=== PATIENT | male | born 1945 | race Caucasian/White ===

== ENCOUNTER 2019-03-24 02:57 | Inpatient (IN) ==
[2019-03-24] MEDS ORDERED: *HR* Adenosine 6 MG/2 ML VIAL IVP ONE ×3 (03:04→03:16)
[2019-03-24] MEDS ORDERED: 0.9 % Sodium Chloride 1,000 ML ONE (03:04)
[2019-03-24] MEDS ORDERED: Ipratropium/Albuterol Neb 3 ML ONE (03:05)
[2019-03-24] MEDS ORDERED: methylPREDNISolone 125 MG/2 ML VIAL IVP ONE (03:13)
[2019-03-24] MEDS ORDERED: Ipratropium/Albuterol Neb 3 ML IH ONE (03:14)
[2019-03-24 03:24] LABS: Basophils % 0.4 %; Immature Granulocytes % 0.4 % (0-4); Red Cell Distribution Width 13.1 % (11.5-14.5)
[2019-03-24 03:25] LABS: Basophils # 0.1 K/mcL (0.0-0.2); Hemoglobin 18.9 g/dL (12.9-16.9); Lymphocytes # 0.7 K/mcL (0.6-4.6); Lymphocytes % 2.4 %; Mean Corpuscular HGB Conc 32.7 g/dL (31.6-35.5); Mean Corpuscular Hemoglobin 31.6 pg (28.0-33.3); Mean Corpuscular Volume 96.5 fL (83.0-100.0); Mean Platelet Volume 11.2 fL (9.4-12.4); Monocytes # 0.7 K/mcL (0.0-1.3); Monocytes % 2.7 %; Neutrophils # 25.8 K/mcL (1.6-8.9); Nucleated Red Blood Cells 0.1 /100 WBC (0); Platelet Count 302 K/mcL (140-400); Red Blood Count 5.99 M/mcL (4.19-5.50); Segmented Neutrophils % 94.1 %; White Blood Count 27.4 K/mcL (4.3-11.1)
[2019-03-24 03:31] LABS: Hematocrit 57.8 % (37.5-50.1)
[2019-03-24] MEDS ORDERED: levoFLOXacin 750 MG/150 ML 750 MG/150 ML BAG IVPB ONE (03:41)
[2019-03-24] MEDS ORDERED: Azithromycin 500 MG in 0.9 % Sodium Chloride 250 ML IVPB ONE (03:41)
[2019-03-24 03:48] LABS: ABG Base Excess -3 mEq/L (-2 to 3); ABG HCO3 23 mEq/L (21-27); ABG Oxygen Saturation 91 % (95-98); ABG PCO2 46 mmHg (35-45); ABG PH 7.32 pH Units (7.32-7.45); ABG PO2 67 mmHg (85-104); ABG TCO2 25 mEq/L (20-26); Blood Gas Modality BiLevel
[2019-03-24 03:54] LABS: Calcium 10.6 mg/dL (8.6-10.3); Potassium 3.8 mEq/L (3.5-5.1); Troponin I 0.18 ng/mL (< 0.04)
[2019-03-24 03:58] LABS: Bilirubin,Urine Moderate (Negative); Blood,Urine Moderate (Negative); Clarity,Urine Turbid (Clear); Color,Urine Orange (Yellow); Glucose,Urine (UA) Normal (Normal); Ketones,Urine Trace mg/dL (Negative); Leukocyte Esterase,Urine Trace (Negative); Nitrite,Urine Negative (Negative); Protein,Urine 100 mg/dL (Neg-Trace); Specific Gravity,Urine 1.026 (1.010-1.025); Urobilinogen,Urine Normal (Normal)
[2019-03-24] MEDS: 0.9 % Sodium Chloride 1,000 ML IVC SCH ×2 (03:58→04:43)
[2019-03-24 04:03] LABS: Bacteria,Urine Present per hpf (None-Few); RBC,Urine Present per hpf (0-3)
[2019-03-24 04:05] LABS: Calcium Carbonate Crystals,Ur Present
[2019-03-24 04:06] LABS: Amorphous Sediment,Urine Many per hpf (Few); WBC,Urine Present per hpf (0-3)
[2019-03-24] MEDS ORDERED: *HR* Digoxin 0.5 MG/2 ML AMPUL IVP ONE (04:18)
[2019-03-24 04:21] LABS: INR 1.2; Prothrombin Time 13.4 Seconds (9.4-12.1)
[2019-03-24 04:24] LABS: Activated Partial Thrombo Time 36.4 Seconds (26.0-36.0)
[2019-03-24] MEDS ORDERED: Cefepime HCl 1,000 MG in 0.9 % Sodium Chloride Mini Bag 100 ML IVPB SCH (04:39)
[2019-03-24] MEDS ORDERED: Acetaminophen 650 MG RECTAL SUPP RC ONE (04:39)
[2019-03-24] MEDS ORDERED: Morphine Sulfate 2 MG/ML SYRINGE IVP ONE (04:39)
[2019-03-24] MEDS ORDERED: *HR* Heparin 5,000 UNIT/ML VIAL IVP PRN ×4 (04:40→05:18)
[2019-03-24] MEDS ORDERED: *HR* Heparin 5,000 UNIT/ML VIAL IVP ONE ×2 (04:40→05:18)
[2019-03-24] MEDS ORDERED: Heparin 25,000 UNIT/250 ML D5W 25,000 UNIT/250 ML IV.SOLN IVC SCH ×2 (04:45→05:30)
[2019-03-24 04:51] LABS: Thyroid Stimulating Hormone 0.87 mcIU/mL (0.340-5.600)
[2019-03-24] MEDS ORDERED: Ondansetron 4 MG/2 ML VIAL IVP PRN (05:04)
[2019-03-24] MEDS ORDERED: Acetaminophen 325 MG TABLET PO PRN (05:04)
[2019-03-24] MEDS ORDERED: Dextrose Gel 15 GM/37.5 ML TUBE PO PRN ×2 (05:04)
[2019-03-24] MEDS ORDERED: D5% in Water 1,000 ML IVC PRN (05:04)
[2019-03-24] MEDS ORDERED: Albuterol 2.5 MG/3 ML NEBULIZER IH PRN (05:04)
[2019-03-24] MEDS ORDERED: Nitroglycerin 0.4 MG TAB.SUBL SL PRN (05:04)
[2019-03-24] MEDS ORDERED: *HR* Dextrose 50 % in Water (Syg) 50 ML SYRINGE IVP PRN (05:04)
[2019-03-24] MEDS ORDERED: Morphine Sulfate 2 MG/ML SYRINGE IVP PRN (05:04)
[2019-03-24] MEDS ORDERED: Naloxone 0.4 MG/ML INJ IVP PRN (05:04)
[2019-03-24] MEDS ORDERED: *HR* Promethazine 25 MG/ML VIAL IVP PRN (05:04)
[2019-03-24] MEDS: Ipratropium/Albuterol Neb 3 ML IH SCH ×4 (05:30→23:01)
[2019-03-24 05:40] LABS: Hematocrit 51.9 % (37.5-50.1); INR 1.2; Mean Corpuscular Hemoglobin 31.5 pg (28.0-33.3); Mean Corpuscular Volume 98.5 fL (83.0-100.0); Mean Platelet Volume 11.2 fL (9.4-12.4); Platelet Count 227 K/mcL (140-400); Prothrombin Time 13.3 Seconds (9.4-12.1); Red Blood Count 5.27 M/mcL (4.19-5.50); Red Cell Distribution Width 12.9 % (11.5-14.5); White Blood Count 20.4 K/mcL (4.3-11.1)
[2019-03-24 05:51] LABS: Hemoglobin 16.6 g/dL (12.9-16.9); Magnesium 2.4 mg/dL (1.6-2.6); Phosphorous 3.9 mg/dL (2.7-4.5)
[2019-03-24] MEDS: MethylPREDNISolone 40 MG/ML VIAL IVP SCH ×3 (06:04→18:49)
[2019-03-24] MEDS: MetroNIDAZOLE 500 MG/100 ML 500 MG/100 ML BAG IVPB SCH ×3 (06:13→20:39)
[2019-03-24] MEDS: Insulin LISPRO 300 UNITS/3 ML VIAL SQ SCH ×3 (06:34→20:36)
[2019-03-24 07:08] LABS: Sodium, Urine 11.2 mEq/L
[2019-03-24 07:59] LABS: Estimated Average Glucose 117 mg/dl
[2019-03-24] MEDS: Nicotine 14 MG PATCH.TD24 TD SCH (12:36)
[2019-03-24] MEDS ORDERED: *HR* LORazepam 2 MG/ML VIAL IVP PRN (14:42)
[2019-03-24] MEDS: dilTIAZem HCl 60 MG TABLET PO SCH ×3 (14:47→20:36)
[2019-03-24] MEDS ORDERED: 0.9 % Sodium Chloride 1,000 ML IVC SCH (15:30)
[2019-03-24] MEDS: Nystatin SUSP 5 ML UD.LIQ PO SCH ×2 (18:50→20:40)
[2019-03-24 19:21] LABS: Acinetobacter baumannii by PCR Not Detected (Not Detect); Candida albicans by PCR Not Detected (Not Detect); Candida glabrata by PCR Not Detected (Not Detect); Candida krusei by PCR Not Detected (Not Detect); Candida parapsilosis by PCR Not Detected (Not Detect); Candida tropicalis by PCR Not Detected (Not Detect); Enterobacter cloacae Cmplx PCR Not Detected (Not Detect); Enterobacteriaceae by PCR Not Detected (Not Detect); Enterococcus by PCR Not Detected (Not Detect); Escherichia coli by PCR Not Detected (Not Detect); Klebsiella oxytoca by PCR Not Detected (Not Detect); Klebsiella pneumoniae by PCR Not Detected (Not Detect); Proteus by PCR Not Detected (Not Detect); Pseudomonas aeruginosa by PCR Not Detected (Not Detect); Serratia marcescens by PCR Not Detected (Not Detect); Staphylococcus aureus by PCR Not Detected (Not Detect); Staphylococcus by PCR Not Detected (Not Detect); Streptococcus agalactiae(B)PCR Not Detected (Not Detect); Streptococcus pneumoniae PCR DETECTED (Not Detect); Streptococcus pyogenes (A) PCR Not Detected (Not Detect); blaKPC Carbapenem-Resist Gene Not Detected (Not Detect); mecA Methicillin-Resist Gene Not Detected (Not Detect); vanA/B Vancomycin-Resist Genes Not Detected (Not Detect)
[2019-03-24] MEDS: Cefepime HCl 1,000 MG in 0.9 % Sodium Chloride Mini Bag 100 ML IVPB SCH (20:39)
[2019-03-25] MEDS: Insulin LISPRO 300 UNITS/3 ML VIAL SQ SCH ×5 (00:58→23:53)
[2019-03-25] MEDS: MethylPREDNISolone 40 MG/ML VIAL IVP SCH ×4 (01:07→23:57)
[2019-03-25] MEDS: Ipratropium/Albuterol Neb 3 ML IH SCH ×4 (03:41→22:32)
[2019-03-25 05:32] LABS: Basophils % 0.1 %; Hematocrit 48.8 % (37.5-50.1); Hemoglobin 15.9 g/dL (12.9-16.9); Immature Granulocytes % 0.9 % (0-4); Lymphocytes # 0.4 K/mcL (0.6-4.6); Lymphocytes % 1.8 %; Mean Corpuscular HGB Conc 32.6 g/dL (31.6-35.5); Mean Corpuscular Hemoglobin 31.1 pg (28.0-33.3); Mean Corpuscular Volume 95.5 fL (83.0-100.0); Monocytes # 0.4 K/mcL (0.0-1.3); Monocytes % 1.8 %; Neutrophils # 19.2 K/mcL (1.6-8.9); Platelet Count 206 K/mcL (140-400); Red Blood Count 5.11 M/mcL (4.19-5.50); Red Cell Distribution Width 13.2 % (11.5-14.5); Segmented Neutrophils % 95.4 %; White Blood Count 20.1 K/mcL (4.3-11.1)
[2019-03-25 05:44] LABS: Magnesium 2.7 mg/dL (1.6-2.6); Phosphorous 2.2 mg/dL (2.7-4.5)
[2019-03-25 05:45] LABS: Calcium 10.4 mg/dL (8.6-10.3); Potassium 3.5 mEq/L (3.5-5.1)
[2019-03-25] MEDS: MetroNIDAZOLE 500 MG/100 ML 500 MG/100 ML BAG IVPB SCH ×3 (05:45→20:21)
[2019-03-25] MEDS ORDERED: D5% in Water 1,000 ML IVC SCH ×2 (07:00→09:59)
[2019-03-25] MEDS ORDERED: Azithromycin 250 MG TABLET PO SCH (08:00)
[2019-03-25] MEDS: Nystatin SUSP 5 ML UD.LIQ PO SCH ×4 (08:01→20:30)
[2019-03-25] MEDS ORDERED: Fluconazole 200 MG/100 ML 200 MG/100 ML BAG IVPB SCH (09:00)
[2019-03-25] MEDS: dilTIAZem HCl 60 MG TABLET PO SCH ×4 (09:44→20:22)
[2019-03-25] MEDS: Nicotine 14 MG PATCH.TD24 TD SCH (09:44)
[2019-03-25] MEDS: Cefepime HCl 1,000 MG in 0.9 % Sodium Chloride Mini Bag 100 ML IVPB SCH ×2 (09:50→20:20)
[2019-03-25] MEDS ORDERED: Dextrose Gel 15 GM/37.5 ML TUBE PO PRN ×2 (09:59)
[2019-03-25] MEDS ORDERED: Nitroglycerin 0.4 MG TAB.SUBL SL PRN (09:59)
[2019-03-25] MEDS ORDERED: Ondansetron 4 MG/2 ML VIAL IVP PRN (09:59)
[2019-03-25] MEDS ORDERED: Naloxone 0.4 MG/ML INJ IVP PRN (09:59)
[2019-03-25] MEDS ORDERED: *HR* Dextrose 50 % in Water (Syg) 50 ML SYRINGE IVP PRN (09:59)
[2019-03-25] MEDS ORDERED: *HR* Promethazine 25 MG/ML VIAL IVP PRN (09:59)
[2019-03-25] MEDS ORDERED: D5% in Water 1,000 ML IVC PRN (09:59)
[2019-03-25] MEDS ORDERED: Albuterol 2.5 MG/3 ML NEBULIZER IH PRN (09:59)
[2019-03-25] MEDS ORDERED: Acetaminophen 325 MG TABLET PO PRN (09:59)
[2019-03-25] MEDS: Fluconazole 200 MG/100 ML 200 MG/100 ML BAG IVPB SCH (10:36)
[2019-03-25] MEDS ORDERED: Potassium Chloride 40 MEQ, Lidocaine 1% 2 ML in 0.9 % Sodium Chloride 500 ML IVPB ONE (10:52)
[2019-03-25] MEDS ORDERED: Potassium Phosphate 44 MEQ in 0.9 % Sodium Chloride 250 ML IVPB ONE (10:52)
[2019-03-25] MEDS ORDERED: MethylPREDNISolone 40 MG/ML VIAL IVP SCH (12:00)
[2019-03-25 15:37] LABS: BUN/Creatinine Ratio 50 (6-26); Blood Urea Nitrogen 63 mg/dL (8-23); Calcium 9.4 mg/dL (8.6-10.3); Carbon Dioxide 23 mEq/L (23-29); Chloride 123 mEq/L (98-107); Glucose 179 mg/dL (70-105); Osmolality,Calculated 334 (280-300); Potassium 4.8 mEq/L (3.5-5.1); Sodium 151 mEq/L (136-145); eGFR For African Americans > 60 (> 60); eGFR For Non-African Americans 55 (> 60)
[2019-03-25] MEDS: *HR* Heparin 5,000 UNIT/ML VIAL SQ SCH (18:23)
[2019-03-26] MEDS: *HR* LORazepam 2 MG/ML VIAL IVP PRN ×5 (03:44→16:38)
[2019-03-26] MEDS: Ipratropium/Albuterol Neb 3 ML IH SCH ×4 (04:27→22:23)
[2019-03-26] MEDS: MetroNIDAZOLE 500 MG/100 ML 500 MG/100 ML BAG IVPB SCH ×3 (04:50→20:42)
[2019-03-26] MEDS: *HR* Heparin 5,000 UNIT/ML VIAL SQ SCH ×3 (05:00→17:12)
[2019-03-26] MEDS: Insulin LISPRO 300 UNITS/3 ML VIAL SQ SCH ×3 (05:37→18:17)
[2019-03-26] MEDS: dilTIAZem HCl 60 MG TABLET PO SCH ×4 (07:58→20:42)
[2019-03-26] MEDS: Nystatin SUSP 5 ML UD.LIQ PO SCH ×4 (07:58→20:43)
[2019-03-26] MEDS: MethylPREDNISolone 40 MG/ML VIAL IVP SCH ×2 (07:58→15:24)
[2019-03-26] MEDS: Cefepime HCl 1,000 MG in 0.9 % Sodium Chloride Mini Bag 100 ML IVPB SCH ×2 (07:58→15:24)
[2019-03-26] MEDS: Nicotine 14 MG PATCH.TD24 TD SCH (08:08)
[2019-03-26] MEDS: Fluconazole 200 MG/100 ML 200 MG/100 ML BAG IVPB SCH (08:10)
[2019-03-26] MEDS ORDERED: Isovue-370 500 ML BOTTLE IVP ONE (08:11)
[2019-03-26] MEDS ORDERED: Cefepime HCl 2,000 MG in 0.9 % Sodium Chloride Mini Bag 100 ML IVPB SCH (08:12)
[2019-03-26] MEDS ORDERED: D5% in Water 1,000 ML IVC SCH (08:15)
[2019-03-26 09:02] LABS: Hematocrit 45.4 % (37.5-50.1); Mean Corpuscular HGB Conc 32.2 g/dL (31.6-35.5); Mean Corpuscular Hemoglobin 30.9 pg (28.0-33.3); Mean Corpuscular Volume 96.2 fL (83.0-100.0); Mean Platelet Volume 11.7 fL (9.4-12.4); Platelet Count 188 K/mcL (140-400); Red Blood Count 4.72 M/mcL (4.19-5.50); Red Cell Distribution Width 13.8 % (11.5-14.5); White Blood Count 11.6 K/mcL (4.3-11.1)
[2019-03-26 09:04] LABS: Hemoglobin 14.6 g/dL (12.9-16.9)
[2019-03-26 09:23] LABS: BUN/Creatinine Ratio 53 (6-26); Blood Urea Nitrogen 63 mg/dL (8-23); Calcium 9.9 mg/dL (8.6-10.3); Carbon Dioxide 23 mEq/L (23-29); Chloride 120 mEq/L (98-107); Glucose 146 mg/dL (70-105); Magnesium 2.5 mg/dL (1.6-2.6); Osmolality,Calculated 345 (280-300); Phosphorous 3.2 mg/dL (2.7-4.5); Potassium 4.1 mEq/L (3.5-5.1); Sodium 157 mEq/L (136-145); eGFR For African Americans > 60 (> 60); eGFR For Non-African Americans > 60 (> 60)
[2019-03-26] MEDS ORDERED: Haloperidol Oral Conc 10 MG/5 ML UDC PO PRN (14:01)
[2019-03-27] MEDS: Insulin LISPRO 300 UNITS/3 ML VIAL SQ SCH ×4 (01:45→18:40)
[2019-03-27] MEDS: Cefepime HCl 1,000 MG in 0.9 % Sodium Chloride Mini Bag 100 ML IVPB SCH ×4 (01:45→23:54)
[2019-03-27] MEDS: MethylPREDNISolone 40 MG/ML VIAL IVP SCH ×4 (01:46→23:54)
[2019-03-27 02:32] LABS: Basophils # 0.1 K/mcL (0.0-0.2); Basophils % 0.7 %; Hematocrit 43.3 % (37.5-50.1); Hemoglobin 14.1 g/dL (12.9-16.9); Immature Granulocytes % 2.8 % (0-4); Lymphocytes # 0.6 K/mcL (0.6-4.6); Lymphocytes % 5.3 %; Mean Corpuscular HGB Conc 32.6 g/dL (31.6-35.5); Mean Corpuscular Hemoglobin 31.1 pg (28.0-33.3); Mean Corpuscular Volume 95.4 fL (83.0-100.0); Mean Platelet Volume 11.9 fL (9.4-12.4); Monocytes # 0.5 K/mcL (0.0-1.3); Monocytes % 4.9 %; Neutrophils # 9.5 K/mcL (1.6-8.9); Platelet Count 150 K/mcL (140-400); Red Blood Count 4.54 M/mcL (4.19-5.50); Red Cell Distribution Width 14.5 % (11.5-14.5); Segmented Neutrophils % 86.3 %
[2019-03-27 03:17] LABS: BUN/Creatinine Ratio 53 (6-26); Blood Urea Nitrogen 57 mg/dL (8-23); Calcium 9.4 mg/dL (8.6-10.3); Carbon Dioxide 21 mEq/L (23-29); Chloride 126 mEq/L (98-107); Glucose 153 mg/dL (70-105); Magnesium 2.4 mg/dL (1.6-2.6); Osmolality,Calculated 333 (280-300); Phosphorous 2.4 mg/dL (2.7-4.5); Potassium 4.3 mEq/L (3.5-5.1); Sodium 152 mEq/L (136-145); eGFR For African Americans > 60 (> 60); eGFR For Non-African Americans > 60 (> 60)
[2019-03-27] MEDS: Ipratropium/Albuterol Neb 3 ML IH SCH ×4 (04:27→22:35)
[2019-03-27] MEDS: MetroNIDAZOLE 500 MG/100 ML 500 MG/100 ML BAG IVPB SCH ×3 (05:41→19:47)
[2019-03-27] MEDS: *HR* Heparin 5,000 UNIT/ML VIAL SQ SCH ×2 (05:42→17:16)
[2019-03-27] MEDS ORDERED: D5% in Water 1,000 ML IVC SCH (07:15)
[2019-03-27] MEDS: Nicotine 14 MG PATCH.TD24 TD SCH (07:53)
[2019-03-27] MEDS: Nystatin SUSP 5 ML UD.LIQ PO SCH ×4 (07:53→19:47)
[2019-03-27] MEDS: dilTIAZem HCl 60 MG TABLET PO SCH ×4 (07:53→19:47)
[2019-03-27] MEDS: Fluconazole 200 MG/100 ML 200 MG/100 ML BAG IVPB SCH (07:56)
[2019-03-27] MEDS: *HR* LORazepam 2 MG/ML VIAL IVP PRN (08:15)
[2019-03-27 14:40] LABS: ABG Base Excess 1 mEq/L (-2 to 3); ABG HCO3 25 mEq/L (21-27); ABG Oxygen Saturation 93 % (95-98); ABG PCO2 37 mmHg (35-45); ABG PH 7.45 pH Units (7.32-7.45); ABG PO2 64 mmHg (85-104); ABG TCO2 27 mEq/L (20-26)
[2019-03-27] MEDS: Haloperidol Oral Conc 10 MG/5 ML UDC PO SCH ×2 (15:24→19:47)
[2019-03-28] MEDS: Insulin LISPRO 300 UNITS/3 ML VIAL SQ SCH ×4 (01:49→17:37)
[2019-03-28] MEDS: Ipratropium/Albuterol Neb 3 ML IH SCH ×4 (03:55→22:02)
[2019-03-28] MEDS: *HR* LORazepam 2 MG/ML VIAL IVP PRN ×2 (03:56→19:36)
[2019-03-28] MEDS: *HR* Heparin 5,000 UNIT/ML VIAL SQ SCH ×2 (05:15→17:09)
[2019-03-28] MEDS: MetroNIDAZOLE 500 MG/100 ML 500 MG/100 ML BAG IVPB SCH (05:16)
[2019-03-28 05:23] LABS: Basophils # 0.1 K/mcL (0.0-0.2); Basophils % 0.6 %; Hematocrit 41.2 % (37.5-50.1); Hemoglobin 13.7 g/dL (12.9-16.9); Immature Granulocytes % 2.5 % (0-4); Lymphocytes # 0.9 K/mcL (0.6-4.6); Lymphocytes % 7.8 %; Mean Corpuscular HGB Conc 33.3 g/dL (31.6-35.5); Mean Corpuscular Volume 93.2 fL (83.0-100.0); Mean Platelet Volume 11.2 fL (9.4-12.4); Monocytes # 0.3 K/mcL (0.0-1.3); Monocytes % 2.9 %; Neutrophils # 9.4 K/mcL (1.6-8.9); Platelet Count 198 K/mcL (140-400); Red Blood Count 4.42 M/mcL (4.19-5.50); Red Cell Distribution Width 14.6 % (11.5-14.5); Segmented Neutrophils % 86.2 %; White Blood Count 10.9 K/mcL (4.3-11.1)
[2019-03-28 06:06] LABS: BUN/Creatinine Ratio 50 (6-26); Blood Urea Nitrogen 54 mg/dL (8-23); Carbon Dioxide 24 mEq/L (23-29); Chloride 127 mEq/L (98-107); Glucose 170 mg/dL (70-105); Magnesium 2.4 mg/dL (1.6-2.6); Osmolality,Calculated 343 (280-300); Phosphorous 3.3 mg/dL (2.7-4.5); Potassium 4.1 mEq/L (3.5-5.1); Sodium 157 mEq/L (136-145); eGFR For African Americans > 60 (> 60); eGFR For Non-African Americans > 60 (> 60)
[2019-03-28 06:17] LABS: Platelet Estimate Normal (Normal)
[2019-03-28] MEDS: D5% in Water 1,000 ML IVC SCH ×2 (09:56→22:38)
[2019-03-28] MEDS: Nicotine 14 MG PATCH.TD24 TD SCH (09:56)
[2019-03-28] MEDS: Fluconazole 200 MG/100 ML 200 MG/100 ML BAG IVPB SCH (09:57)
[2019-03-28] MEDS: Nystatin SUSP 5 ML UD.LIQ PO SCH ×4 (09:57→19:27)
[2019-03-28] MEDS: Cefepime HCl 1,000 MG in 0.9 % Sodium Chloride Mini Bag 100 ML IVPB SCH ×2 (09:57→15:07)
[2019-03-28] MEDS: MethylPREDNISolone 40 MG/ML VIAL IVP SCH ×2 (09:57→15:06)
[2019-03-28] MEDS: dilTIAZem HCl 60 MG TABLET PO SCH ×4 (09:57→19:26)
[2019-03-28] MEDS: Haloperidol Oral Conc 10 MG/5 ML UDC PO SCH ×3 (09:58→19:26)
[2019-03-29] MEDS: Insulin LISPRO 300 UNITS/3 ML VIAL SQ SCH ×4 (00:10→18:31)
[2019-03-29] MEDS: MethylPREDNISolone 40 MG/ML VIAL IVP SCH ×2 (00:18→13:29)
[2019-03-29] MEDS: Cefepime HCl 1,000 MG in 0.9 % Sodium Chloride Mini Bag 100 ML IVPB SCH ×2 (00:18→09:37)
[2019-03-29] MEDS: Ipratropium/Albuterol Neb 3 ML IH SCH ×4 (04:05→23:05)
[2019-03-29] MEDS: *HR* LORazepam 2 MG/ML VIAL IVP PRN ×5 (04:29→20:39)
[2019-03-29 04:57] LABS: BUN/Creatinine Ratio 50 (6-26); Blood Urea Nitrogen 51 mg/dL (8-23); Calcium 8.8 mg/dL (8.6-10.3); Carbon Dioxide 25 mEq/L (23-29); Chloride 125 mEq/L (98-107); Glucose 180 mg/dL (70-105); Magnesium 2.5 mg/dL (1.6-2.6); Osmolality,Calculated 340 (280-300); Phosphorous 3.1 mg/dL (2.7-4.5); Potassium 4.2 mEq/L (3.5-5.1); Sodium 156 mEq/L (136-145); eGFR For African Americans > 60 (> 60); eGFR For Non-African Americans > 60 (> 60)
[2019-03-29] MEDS: *HR* Heparin 5,000 UNIT/ML VIAL SQ SCH (05:56)
[2019-03-29] MEDS ORDERED: D5% in 0.45% NACL 1,000 ML IVC SCH (07:15)
[2019-03-29] MEDS: Fluconazole 200 MG/100 ML 200 MG/100 ML BAG IVPB SCH (09:37)
[2019-03-29] MEDS: dilTIAZem HCl 60 MG TABLET PO SCH ×4 (09:38→20:44)
[2019-03-29] MEDS: Nystatin SUSP 5 ML UD.LIQ PO SCH ×4 (09:38→20:44)
[2019-03-29] MEDS: Haloperidol Oral Conc 10 MG/5 ML UDC PO SCH (09:38)
[2019-03-29] MEDS: Nicotine 14 MG PATCH.TD24 TD SCH (09:41)
[2019-03-29] MEDS ORDERED: Aminoglycoside Consult 1 EACH MC ONE (11:46)
[2019-03-29] MEDS ORDERED: *HR* LORazepam 2 MG/ML VIAL IVP ONE (12:45)
[2019-03-29] MEDS ORDERED: Morphine Sulfate Oral CONC 10 MG/0.5 ML ORAL.SYG SL PRN (13:12)
[2019-03-29] MEDS: Haloperidol Lactate 5 MG/ML VIAL IVP SCH ×2 (13:40→18:07)
[2019-03-29] MEDS ORDERED: Haloperidol Lactate 5 MG/ML VIAL IVP ONE (14:47)
[2019-03-29] MEDS ORDERED: Atropine Sulfate 1% 40 DROP/2 ML BOTTLE SL PRN (15:13)
[2019-03-29] MEDS: Morphine Sulfate Oral CONC 10 MG/0.5 ML ORAL.SYG SL SCH ×2 (16:16→20:38)
[2019-03-30] MEDS: MethylPREDNISolone 40 MG/ML VIAL IVP SCH ×2 (00:15→12:38)
[2019-03-30] MEDS: Haloperidol Lactate 5 MG/ML VIAL IVP SCH ×4 (00:16→17:03)
[2019-03-30] MEDS: Morphine Sulfate Oral CONC 10 MG/0.5 ML ORAL.SYG SL SCH ×6 (00:19→19:59)
[2019-03-30] MEDS: Ipratropium/Albuterol Neb 3 ML IH SCH ×4 (04:38→22:41)
[2019-03-30] MEDS: Nystatin SUSP 5 ML UD.LIQ PO SCH ×3 (09:31→19:58)
[2019-03-30] MEDS: dilTIAZem HCl 60 MG TABLET PO SCH ×3 (09:31→19:58)
[2019-03-30] MEDS: *HR* FentaNYL (PF) 100 MCG/2 ML VIAL IVP PRN (19:21)
[2019-03-30] MEDS: *HR* LORazepam 2 MG/ML VIAL IVP PRN (22:31)
[2019-03-31] MEDS: Morphine Sulfate Oral CONC 10 MG/0.5 ML ORAL.SYG SL SCH ×3 (00:15→10:05)
[2019-03-31] MEDS: Haloperidol Lactate 5 MG/ML VIAL IVP SCH ×2 (00:16→05:39)
[2019-03-31] MEDS: MethylPREDNISolone 40 MG/ML VIAL IVP SCH (00:16)
[2019-03-31] MEDS: *HR* LORazepam 2 MG/ML VIAL IVP PRN ×2 (02:57→10:07)
[2019-03-31] MEDS: Ipratropium/Albuterol Neb 3 ML IH SCH ×2 (04:00→11:33)
[2019-03-31 07:15] VITALS: BP 170/90
[2019-03-31] MEDS: *HR* FentaNYL (PF) 100 MCG/2 ML VIAL IVP PRN (07:58)
[2019-03-31] MEDS ORDERED: *HR* FentaNYL (PF) 100 MCG/2 ML VIAL IVP PRN (09:02)
[2019-03-31] MEDS ORDERED: Morphine Sulfate Oral CONC 10 MG/0.5 ML ORAL.SYG SL PRN (09:03)
[2019-03-31] MEDS: dilTIAZem HCl 60 MG TABLET PO SCH (10:05)
[2019-03-31] MEDS: Nystatin SUSP 5 ML UD.LIQ PO SCH (10:05)
== END 2019-03-31 11:47 | disposition hospice, inpatient (51) | DRG 871 ==
LOC: EMEROOARM 02:57 → ICNU 04:39 → SUATTDRO 04:39 → ICNU 04:55 → 2NNU 03-25 11:43 → 2ANU 03-30 18:56
PROVIDERS: ADMIT Internal Medicine; ATTEND Family Medicine

== ENCOUNTER 2019-03-31 09:47 | Inpatient (IN) ==
[2019-03-31] MEDS ORDERED: Bisacodyl 10 MG RECTAL SUPPOSITORY RC PRN (11:24)
[2019-03-31] MEDS ORDERED: Acetaminophen 650 MG RECTAL SUPP RC PRN (11:26)
[2019-03-31] MEDS ORDERED: Ipratropium/Albuterol Neb 3 ML IH PRN (11:27)
[2019-03-31] MEDS ORDERED: Atropine Sulfate 1% 40 DROP/2 ML BOTTLE SL PRN (11:27)
[2019-03-31] MEDS: Haloperidol Oral Conc 10 MG/5 ML UDC PO SCH ×2 (13:00→19:00)
[2019-03-31] MEDS: Morphine Sulfate Oral CONC 10 MG/0.5 ML ORAL.SYG SL PRN (14:32)
[2019-03-31] MEDS: Morphine Sulfate Oral CONC 10 MG/0.5 ML ORAL.SYG SL SCH ×2 (17:03→21:12)
[2019-04-01] MEDS: Morphine Sulfate Oral CONC 10 MG/0.5 ML ORAL.SYG SL SCH ×6 (01:00→20:09)
[2019-04-01] MEDS: Haloperidol Oral Conc 10 MG/5 ML UDC PO SCH ×4 (01:00→17:05)
[2019-04-01] MEDS: Morphine Sulfate Oral CONC 10 MG/0.5 ML ORAL.SYG SL PRN (18:28)
[2019-04-01] MEDS: *HR* LORazepam Oral Conc 2 MG/ML SL PRN (20:09)
[2019-04-02] MEDS: *HR* LORazepam Oral Conc 2 MG/ML SL PRN ×2 (00:10→06:34)
[2019-04-02] MEDS: Morphine Sulfate Oral CONC 10 MG/0.5 ML ORAL.SYG SL SCH ×7 (00:10→23:48)
[2019-04-02] MEDS: Haloperidol Oral Conc 10 MG/5 ML UDC PO SCH ×5 (00:11→23:48)
[2019-04-02] MEDS: Morphine Sulfate Oral CONC 10 MG/0.5 ML ORAL.SYG SL PRN (06:34)
[2019-04-02 19:17] VITALS: BP 113/77
[2019-04-03] MEDS: Morphine Sulfate Oral CONC 10 MG/0.5 ML ORAL.SYG SL SCH ×2 (04:12→07:22)
[2019-04-03] MEDS: Haloperidol Oral Conc 10 MG/5 ML UDC PO SCH (06:29)
== END 2019-04-03 11:17 | disposition expired | DRG 951 ==
LOC: 2ANU 11:48
PROVIDERS: ADMIT Internal Medicine Hospice and Palliative Medicine; ATTEND Internal Medicine Hospice and Palliative Medicine